=== PATIENT | female | born 1945 | race Caucasian/White ===

== ENCOUNTER 2024-10-30 06:38 | Day surgery (SDC) | payer MEDICARE ==
[2024-10-30] MEDS ORDERED: Decadron 4 MG INJ IV ONE (06:39)
[2024-10-30] MEDS ORDERED: Sodium Chloride 0.9(Preservative Free) 10 ML IJ ONE (06:39)
[2024-10-30] MEDS ORDERED: DIPRIVAN 200 MG/20 ML IV ONE (08:02)
--- NOTE | 2024-10-30 10:11 | XRAY ---
Indication: Right L4-S1 transforaminal SAMUEL. Intraoperative fluoroscopy provided for 27 seconds. 6 digital spot image submitted for interpretation demonstrates posterior needle tips projecting over expected right L4 and L5 nerve roots. Small amount of contrast injected for needle tip placement. Correlate with intraoperative findings/report.
--- NOTE | 2024-10-30 11:01 | XRAY ---
27 seconds of fluoroscopy was used in surgery for a right L4-S1 transforaminal SAMUEL.
== END 2024-10-30 09:00 | disposition home or self-care (01) ==
LOC: SDC-PAIN 06:38
PROVIDERS: ATTEND Psychiatry & Neurology Pain Medicine
DX: M54.16 Radiculopathy, lumbar region (principal); E11.9 Type 2 diabetes mellitus without complications
CPT/HCPCS: 72100; 77003; 82947; J1100; J2704

== ENCOUNTER 2025-01-29 15:32 | Day surgery (SDC) | payer MEDICARE ==
[2025-01-29] MEDS ORDERED: LIDOCAINE HCL 1% AMPUL 5 ML IJ ONE (15:33)
[2025-01-29] MEDS ORDERED: Depo-Medrol 40 MG/ML IM ONE (15:33)
[2025-01-29] MEDS ORDERED: BUPIVACAINE 0.5% VIAL IJ ONE (15:33)
--- NOTE | 2025-01-29 18:24 | XRAY ---
Indication: Left knee injection. Intraoperative fluoroscopy provided for 7 seconds. Single digital spot image submitted for interpretation demonstrates needle tip projecting over left femur intercondylar notch. Small amount of contrast injected for needle tip placement. Correlate with intraoperative findings/report.
--- NOTE | 2025-01-29 18:24 | XRAY ---
Indication: Right knee injection. Intraoperative fluoroscopy provided for 7 seconds. Single digital spot image submitted for interpretation demonstrates needle tip projecting over right femur intercondylar notch. Small amount of contrast injected for needle tip placement. Correlate with intraoperative findings/report.
--- NOTE | 2025-01-30 09:16 | XRAY ---
7 seconds of fluoroscopy was used in surgery for a right intra-articular knee injection.
--- NOTE | 2025-01-30 09:16 | XRAY ---
7 seconds of fluoroscopy was used in surgery for a left intra-articular knee injection.
== END 2025-01-29 17:42 | disposition home or self-care (01) ==
LOC: SDC-PAIN 15:32
PROVIDERS: ATTEND Psychiatry & Neurology Pain Medicine
DX: M17.0 Bilateral primary osteoarthritis of knee (principal); E11.9 Type 2 diabetes mellitus without complications
CPT/HCPCS: 20610; 73560; 77002; 82947; Q9966